=== PATIENT | male | born 1980 | race Caucasian/White ===

== ENCOUNTER 2016-07-22 16:39 | Emergency (ER) | payer OTHER ==
[2016-07-22 16:56] VITALS: BP 140/95
--- OUTSIDE RECORDS SUMMARY | 2016-07-22 21:54 | XMS REPORT | Continuity of Care Document ---
:1980 Author Organization [facility] ([facility]) Address [address] [place] [address] Phone [phone] Care Team Providers Name Role Phone Provider, No-Primary Care Primary Care Provider Unavailable Source Comments This disclosure is being made pursuant to the Care Everywhere program, applicable federal and state laws, and may not contain all informaitonavailable regarding this patient.[facility] ([facility]) Active Allergies and Adverse Reactions Allergen Noted Date Severity Reactions Comments Cortisone 10/20/2013 OTHER "locked up muscles" per patient Current Medications Prescription Sig. Disp. Refills Start Date End Date Status naproxen 250 mg Take 250 mg by mouth 2 Active tablet times daily with meals. Indications: PAIN ranitidine 150 mg Take 150 mg by mouth 2 Active tablet times daily. Indications: GASTROESOPHAGEAL REFLUX FLUoxetine 40 mg Take 80 mg by mouth Active capsule daily. Indications: PANIC DISORDER meloxicam 15 mg Take 1 Tab by mouth 30 Tab 11 10/20/2013 Active tablet daily. Indications: OSTEOARTHRITIS clonazePAM Take 1 Tab by mouth 3 100 Tab 2 12/29/2013 Active (KLONOPIN) 1 mg times daily. May take a tablet 4th dose prn. Indications: anxiety Active Problems Problem Noted Date Anxiety 10/20/2013 Cervicalgia 02/01/2007 Sprain and strain of unspecified site of knee and leg 05/16/2006 Pain in joint, lower leg 05/15/2006 Follow-up examination, following unspecified surgery 10/26/2003 Other closed dislocation of knee(836.59) 10/26/2003 Osteochondritis dissecans 08/31/2003 Tear of medial cartilage or meniscus of knee, current 08/31/2003 Tear of lateral cartilage or meniscus of knee, current 08/31/2003 Sprain of lateral collateral ligament of knee 08/31/2003 Sprain of medial collateral ligament of knee 08/31/2003 Sprain of cruciate ligament of knee 08/31/2003 Social History Tobacco Use Types Packs/Day Years Used Date Former Smoker Smokeless Tobacco: Current User Snuff Comments:occasional use Alcohol Use Drinks/Week oz/Week Comments No Last Filed Vital Signs Vital Sign Reading Time Taken Blood Pressure 133/77 12/29/2013 3:08 PM CDT Pulse 71 12/29/2013 3:08 PM CDT Temperature 36.9 C (98.4 F) 12/29/2013 3:08 PM CDT Respiratory Rate 16 12/29/2013 3:08 PM CDT Height 1.93 m (6' 4") 05/13/2011 2:44 PM [employer] Weight 95.074 kg (209 lb 9.6 oz) 12/01/2013 9:53 AM CDT Body Mass Index 25.52 12/01/2013 9:53 AM CDT Oxygen Saturation - - Plan of Care Health Maintenance Due Date Last Done Comments Hepatitis B Vaccine (1 of 3 - Primary Series) 1980 Tdap Vaccine 10/13/1991 Lipid Disorder Screening 1998 MMR Vaccine 1998 Td Vaccine 1998 Varicella Vaccine (1 of 2 - Adult - No Evidence of 1998 Immunity) Influenza Vaccine: Seasonal (#1) 11/26/2015 Results from Last 3 Months Not on file
== END 2016-07-22 19:22 | disposition left against medical advice (07) ==
LOC: ER 16:39
DX: M54.2 Cervicalgia (principal); M54.9 Dorsalgia, unspecified; M25.511 Pain in right shoulder; V86.59XA Driver of other special all-terrain or other off-road motor vehicle injured in nontraffic accident, initial encounter; Y93.I9 Activity, other involving external motion